=== PATIENT | female | born 2000 | race Hispanic/Latino ===

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

== ENCOUNTER 2022-05-02 11:42 | Emergency (ER) | payer OTHER ==
[~2022-05-02] VITALS: Ht 149.9 cm; Wt 68.0 kg
[2022-05-02 11:47] VITALS: BP 118/44
[2022-05-02 12:14] LABS: INFLUENZA TYPE A NEGATIVE FOR TYPE A (NEG)
[2022-05-02 12:15] LABS: INFLUENZA TYPE B NEGATIVE FOR TYPE B (NEG)
[2022-05-02] MEDS ORDERED: ALBU6.7H14 IH (13:48)
[2022-05-02] MEDS ORDERED: OSEL75 PO (13:48)
[2022-05-02] MEDS ORDERED: IBUP-1556 PO (13:48)
[2022-05-02] MEDS ORDERED: D-ME1POW16 PO (13:48)
[2022-05-02] MEDS ORDERED: OSELTAMIVIR PHOSPHATE 75 MG CAP PO SCH (14:00)
[2022-05-02] MEDS ORDERED: GUAIFENESIN-CODEINE 5 ML SYRUP PO ONE (14:00)
[2022-05-02] MEDS ORDERED: ACETAMINOPHEN 500 MG TABLET PO ONE (14:00)
[2022-05-02] MEDS ORDERED: IBUPROFEN 800 MG TAB PO ONE (14:00)
== END 2022-05-02 14:17 | disposition home or self-care (01) ==
LOC: EDH 11:42
DX: J06.9 Acute upper respiratory infection, unspecified (principal); Z20.828 Contact with and (suspected) exposure to other viral communicable diseases; Z20.822 Contact with and (suspected) exposure to COVID-19; E66.9 Obesity, unspecified; Z88.0 Allergy status to penicillin; Z79.1 Long term (current) use of non-steroidal anti-inflammatories (NSAID); Z68.30 Body mass index [BMI] 30.0-30.9, adult
CPT/HCPCS: 99284; 87635; 87804 ×2; C9803

== ENCOUNTER 2024-12-13 06:45 | Emergency (ER) | payer SELFPAY ==
[~2024-12-13] VITALS: Ht 149.9 cm; Wt 65.8 kg
[~2024-12-13 06:45] MED LIST: ALBU6.7H14 IH; D-ME1POW16 PO; IBUP-1556 PO; MAG-55 PO; OMEP20CA12 PO; OSEL75 PO
--- NOTE | 2024-12-13 07:11 | ERN ---
General Chief Complaint: Multiple Complaints Stated Complaint: CHEST PAIN, ABD PAIN, RT BREAST PAIN Time Seen by MD: 07:00 Source: patient, family History of Present Illness Initial Comments Patient is a 24-year-old female coming in to be evaluated for epigastric and chest pressure. Patient states that for in the morning she woke up with this pressure. She states that she was evaluated before for the same thing and was diagnosed with GERD. She received GI cocktail and states he felt much better back then this time she states she felt worse and the fact that the pressure was also presses on her chest that the reason she was more concerned. Allergies: Coded Allergies: Penicillins (Unverified Allergy, Unknown, 05/02/22) Home Meds Active Scripts Mag Hydrox/Al Hydrox/Simeth (Maalox Maximum Strength Susp) 355 Ml Oral.susp, 10 ML PO QID for abdominal pain, #355 ML Prov:ELICIA NUÑEZ MD 05/30/22 Omeprazole (Omeprazole) 20 Mg Capsule.dr, 20 MG PO DAILY, #30 CAP Prov:ELICIA NUÑEZ MD 05/30/22 Oseltamivir Phosphate (Tamiflu) 75 Mg Cap, 75 MG PO BID for 5 Days, #10 CAP Prov:LUX LOPEZ 05/02/22 Albuterol Sulfate (Proventil Hfa) 6.7 Gm Hfa.aer.ad, 2 PUFF IH QID, #1 INHALER Prov:LUX LOPEZ 05/02/22 Ibuprofen (Ibu) 800 Mg Tablet, 800 MG PO TID, #45 TAB Prov:LUX LOPEZ 05/02/22 D-Methorphan/PE/Acetaminophen (Theraflu Ms Severe Cold Pckt) 1 Each Powd.pack, 1 EACH PO QID, #20 PACK Prov:LUX LOPEZ 05/02/22 Past Medical History Past Medical History: Other Medical History Other: Obese, ACID REFLUX Past Surgical History: None Family History Family History: Negative Social History Social History: Negative, Lives with family Female( History) History: Not Applicable LMP: Dec 01, 2024 ROS Dictation CONSTITUTIONAL: No chills, no fever, no weakness, no diaphoresis, no malaise. HEAD/FACE: No signs of trauma. EENT: No eye pain, no blurred vision, no tearing, no double vision, no ear pain, no ear discharge, no nose pain, no nasal congestion, no throat pain, no throat swelling, no mouth pain. RESPIRATORY: No cough, no orthopnea, no SOB, no stridor, no wheezing. CARDIOVASCULAR: No chest pain, no edema, no palpitations, no syncope. GASTROINTESTINAL/ABDOMINAL: abdominal pain, no constipation, no diarrhea, no nausea, no vomiting. GENITOURINARY: No abnormal discharge, no dysuria, no frequent urination, no hematuria. No complaints of pain in the genitals. MUSCULOSKELETAL: No back pain, no gout, no joint pain, no joint swelling, no muscle pain, no muscle stiffness, no neck pain. INTEGUMENTARY: No change in color, no change in hair/nails, no dryness, no lesion, no lumps, no rash. NEUROLOGICAL/PSYCH: No anxiety, not depressed, no emotional problem, no headache, no numbness, no pre-existing deficit, no history of seizures, no tremors, no weakness. HEMATOLOGIC/LYMPHATIC: Not anemic, no history of blood clots, no apparent bleeding, no bruising, glands not swollen. All Systems Negative, Except as Noted. Physical Exam Physical Exam Dictation VITAL SIGNS: Reviewed. GENERAL APPEARANCE: Alert, oriented x3, no acute distress, obese. HEAD AND FACE: Non-traumatic. EYES: PERRL, pink conjunctivas, eyelid no trauma, anterior chamber clear. EARS: Pinnas intact and no signs of trauma or erythema. Ear canals clear and no discharge. TMs no erythema. NOSE: No discharge, no bleeding. OROPHARYNX: Mouth normal, teeth no caries, tongue pink. Pharynx clear, no erythema. Tonsils no exudates, no abscesses noted. Mucous membrane moist. NECK: Supple, non-tender, no thyromegaly, no masses, no JVD, no bruits. BREAST: Deferred. CHEST: No tenderness, no crepitus, no paradoxical movement, no retractions. LUNGS: Clear, well-ventilated, symmetric, no rales, no wheezing, no rhonchi, no stridor, good breath sounds bilaterally. HEART: Regular rate, regular rhythm, no murmur, no gallops. VASCULAR: No peripheral edema. ABDOMEN: Soft, positive bowel sounds, nondistended, no guarding, nontender, no rebound, no masses no hepatomegaly, no splenomegaly, no Mata's sign, no hernias. RECTAL: Deferred. GENITAL: Deferred. NEUROLOGICAL: Normal speech, gross motor function intact, gross sensory function intact. MUSCULOSKELETAL: Neck nontender, full range of motion, back nontender, full range of motion. EXTREMITIES: Nontender, full range of motion. SKIN: Color pink, dry, no turgor, no rash, no lacerations, no abrasions, no contusions. LYMPHATICS: Deferred. Results Laboratory and Microbiology Lab and Micro Result Laboratory Tests Test 12/13/24 06:58 White Blood Count 8.8 K/uL (4.8-10.8) Red Blood Count 4.92 MIL/uL (4.00-5.50) Hemoglobin 14.3 g/dL (12.0-16.0) Hematocrit 42.7 % (36-48) Mean Corpuscular Volume 86.8 fL (79-99) Mean Corpuscular Hemoglobin 29.1 pg (27.0-33.0) Mean Corpuscular Hemoglobin Concent 33.5 g/dL (32.0-36.0) Red Cell Distribution Width 12.6 % (11.0-15.5) Platelet Count 304 K/uL (130-400) Mean Platelet Volume 9.9 fL (7.5-10.5) Immature Granulocyte % (Auto) 0.3 % (0-1) Neutrophils (%) (Auto) 59.4 % (40.0-77.0) Lymphocytes (%) (Auto) 33.5 % (21.0-51.0) Monocytes (%) (Auto) 5.8 % (3.0-13.0) Eosinophils (%) (Auto) 0.7 % (0.0-8.0) Basophils (%) (Auto) 0.3 % (0.0-5.0) Neutrophils # (Auto) 5.2 K/uL (1.8-7.7) Lymphocytes # (Auto) 2.9 K/uL (1.0-4.8) Monocytes # (Auto) 0.5 K/uL (0.1-1.0) Eosinophils # (Auto) 0.06 K/uL (0.00-0.70) Basophils # (Auto) 0.03 K/uL (0.00-0.20) Absolute Immature Granulocyte (auto 0.03 K/uL (0-1) Nucleated Red Blood Cells 0.0 % (0.0-0.19) Sodium Level 138 mmol/L (136-145) Potassium Level 3.2 mmol/L (3.5-5.1) L Chloride Level 100 mmol/L (101-111) L Carbon Dioxide Level 30 mmol/L (21-32) Blood Urea Nitrogen 12 mg/dL (7-18) Creatinine 0.7 mg/dL (0.5-1.0) Glomerular Filtration Rate Calc 124 mL/min (>90) Random Glucose 112 mg/dL (70-105) H Total Calcium 9.5 mg/dL (8.5-10.1) Total Bilirubin 0.5 mg/dL (0.2-1.0) Aspartate Amino Transf (AST/SGOT) 16 U/L (10-37) Alanine Aminotransferase (ALT/SGPT) 28 U/L (12-78) Alkaline Phosphatase 96 U/L (50-136) Troponin I High Sensitivity 17 ng/L (4-50) Total Protein 7.8 g/dL (6.0-8.3) Albumin 3.9 g/dL (3.5-5.0) Lipase 24 U/L (16-77) Labs Reviewed?: Yes EKG/XRAY/US/CT/MRI EKG Comment [id number] time 7:03 a.m. Ventricular rate 58 Sinus rhythm [place] [address] wave elevation or depression X-RAY Comment IMAGING REPORT Signed PATIENT: DWAINE SANCHEZ MR#: [id number] : 2000 SEX: F AGE: 24 LOCATION: [facility] ORDER [id number] STATUS: REG REPORT#: [id number] SERVICE [id number] REASON: CHEST PAIN ORDERING PHYSICIAN: RAMON PERERA MD PROCEDURE: CXR1VW - CHEST 1VW CHEST 1VW HISTORY: Chest pain COMPARISON: None FINDINGS: A frontal projection of the chest was obtained. No acute pulmonary infiltrates is seen. The heart is normal in size. Prominent interstitial markings are seen. No evidence of aortic calcification is seen. IMPRESSION: 1. No acute pulmonary infiltrate is seen. DICTATED BY: VALDO ALMAZAN MD DATE: 12/13/24828 ELECTRONICALLY SIGNED BY: VALDO ALMAZAN MD DATE: 12/13/24831 [facility] MDM: Differential diagnosis: GERD, gastritis, NSTEMI, STEMI, cholecystitis, fibr ocystic changes breast Rationale: Tests considered and ordered secondary to shared decision making include: Previous outside records reviewed: Old ER visits. Risk of complication and/or morbidity or mortality of patient management: None Patient is a 24-year-old female coming in to be evaluated for epigastric discomfort and chest pressure. Long with the she has been having right breast discomfort. On physical exam chaperoned by nurse fibrocystic changes in the right breast. Laboratory workup mild dehydration patient was hydrated GI cocktail resolve pain. Patient will be discharged in stable condition with a diagnosis of GERD and fibrocystic changes of the right breast. ED Course Orders Procedure Category Date Status Time Vital Signs Per CPOE 12/13/24 Transmitted Routine 07:04 Saline Lock Iv CPOE 12/13/24 Transmitted 07:04 Cbc With Differential LAB 12/13/24 Complete 07:04 Comprehensive LAB 12/13/24 Complete Metabolic Panel 07:04 Lipase LAB 12/13/24 Complete 07:04 Urinalysis Profile LAB 12/13/24 Logged 07:04 12 Lead Ekg Tracing- EKG 12/13/24 Logged Technical 07:04 Troponin I High LAB 12/13/24 Complete Sensitivity 07:04 Chest 1vw RAD 12/13/24 Resulted 07:04 Ondansetron 4mg Inj PHA 12/13/24 Complete (Zofran 4mg Inj) 07:30 Lidocaine Hcl 2% PHA 12/13/24 Complete Viscous (Lidocaine Hcl 07:30 Mag/Alum/Simeth 30ml PHA 12/13/24 Complete (Maalox Plus 30ml) 07:30 Pantoprazole 40mg Inj PHA 12/13/24 Complete (Protonix 40mg Inj 07:30 0.9%Nacl 1000ml (Ns PHA 12/13/24 Complete 1000ml) 09:00 Potassium Bicarb/Cit PHA 12/13/24 Complete Ac 25meq (K-Lyte Ta 09:00 Current Medications Medications (Trade) Dose Ordered Sig/Luan Route PRN Reason Start Time Stop Time Status Last Admin Dose Admin Al Hydroxide/Mg Hydroxide (MAALox PLUS 30ML) 30 ml ONCE ONCE PO 12/13/24 07:30 12/13/24 07:31 DC Lidocaine HCl (Lidocaine HCl 2% Viscous) 10 ml ONCE ONCE PO 12/13/24 07:30 12/13/24 07:31 DC Ondansetron HCl (zoFRAN 4MG INJ) 4 mg ONCE ONCE IVP 12/13/24 07:30 12/13/24 07:31 DC Pantoprazole Sodium (PROTonix 40MG INJ) 40 mg ONCE ONCE IVP 12/13/24 07:30 12/13/24 07:31 DC Potassium Bicarbonate (K-Lyte Tablet Eff 25 Meq Tablet.eff) 25 meq ONCE ONCE PO 12/13/24 09:00 12/13/24 09:01 DC Sodium Chloride 1,000 ml @ 0 mls/hr ONCE ONCE IV 12/13/24 09:00 12/13/24 09:01 DC Vital Signs Date Time Temp Pulse Resp B/P (MAP) Pulse Ox O2 Delivery O2 Flow Rate FiO2 12/13/24 07:05 98.4 57 17 132/66 99 Room Air* 0 21 12/13/24 06:46 97.0 60 18 146/80 100 Room Air DX & DISP Disposition: Discharge Departure Impression: Primary Impression: Chest pain due to GERD Additional Impression: Fibrocystic changes of right breast Condition: Stable Scripts Naproxen (Naproxen) 375 Mg Tablet 1 TAB PO BID for pain for 7 Days, #14 TAB 0 Refills with food Prov: JESSY MILLER MD 12/13/24 Pantoprazole Sodium (Protonix) 40 Mg Ectab 1 TAB PO DAILY for 30 Days, #30 TAB 0 Refills Prov: JESSY MILLER MD 12/13/24 Additional Instructions: You have been reviewed in the emergency department at [facility] after presenting with chest pain. After considering your history, your risk factors, your EKG and your blood test troponins, have been found to be at very low risk less than (1 in 100) of having a major adverse cardiac event (like heart attack) in the near future. In the " low risk" group, the risks of doing further tests and treatment as the inpatient outweighs the benefits. In many patients in the low risk group for the test of any sort or unnecessary, however he should discuss this further with his general practitioner who will understand the medical and personal backgrounds better. Because we have never declared you" no risk" we would suggest. 1 returning for medical review if you have further episodes of chest pain/arm pain or other concerning symptoms like dizziness, collapse, palpitations or shor tness of breath. 2. Following up with your local doctor who will consider the need for further testing and will also ensure that any modifiable risk factors you may have for heart disease are optimally managed. Patient will be discharged in stable condition at the moment discharge patient states , no chest pain Referrals: SELF,REFERRAL (PCP) TANJA ROBERTS MD Time of Disposition: 09:33 JESSY MILLER MD Dec 13, 2024 07:11
[2024-12-13 07:12] LABS: BASOPHILS # (AUTO) 0.03 K/uL (0.00-0.20); BASOPHILS % (AUTO) 0.3 % (0.0-5.0); EOSINOPHILS # (AUTO) 0.06 K/uL (0.00-0.70); EOSINOPHILS % (AUTO) 0.7 % (0.0-8.0); HEMATOCRIT 42.7 % (36-48); IMMATURE GRANULOCYTE ABSOLUTE 0.03 K/uL (0-1); LYMPHOCYTES # (AUTO) 2.9 K/uL (1.0-4.8); LYMPHOCYTES % (AUTO) 33.5 % (21.0-51.0); MEAN CORPUSCULAR HEMOGLOBIN 29.1 pg (27.0-33.0); MEAN CORPUSCULAR HGB CONC 33.5 g/dL (32.0-36.0); MEAN CORPUSCULAR VOLUME 86.8 fL (79-99); MONOCYTES # (AUTO) 0.5 K/uL (0.1-1.0); MONOCYTES % (AUTO) 5.8 % (3.0-13.0); NEUTROPHILS # (AUTO) 5.2 K/uL (1.8-7.7); NEUTROPHILS % (AUTO) 59.4 % (40.0-77.0); PLATELET COUNT (AUTO) 304 K/uL (130-400); RED BLOOD CELL COUNT(AUTO) 4.92 MIL/uL (4.00-5.50); RED CELL DISTRIBUTION WIDTH 12.6 % (11.0-15.5); WHITE BLOOD COUNT (AUTO) 8.8 K/uL (4.8-10.8)
[2024-12-13 07:28] LABS: ALBUMIN 3.9 g/dL (3.5-5.0); BILIRUBIN,TOTAL 0.5 mg/dL (0.2-1.0); CREATININE 0.7 mg/dL (0.5-1.0); POTASSIUM 3.2 mmol/L (3.5-5.1); TOTAL PROTEIN, SERUM 7.8 g/dL (6.0-8.3)
--- NOTE | 2024-12-13 08:32 | HMCIMG ---
CHEST 1VW HISTORY: Chest pain COMPARISON: None FINDINGS: A frontal projection of the chest was obtained. No acute pulmonary infiltrates is seen. The heart is normal in size. Prominent interstitial markings are seen. No evidence of aortic calcification is seen. IMPRESSION: 1. No acute pulmonary infiltrate is seen.
[2024-12-13] MEDS ORDERED: NAPR-1192 PO (09:34)
[2024-12-13] MEDS ORDERED: PANT40TA55 PO (09:34)
--- NOTE | 2024-12-13 09:39 | NUR ---
PT ASKED ON MULTIPLE OCCASIONS BUT STATES SHE IS STILL UNABLE TO PROVIDE A SAMPLE.
[2024-12-13] MEDS: PoTASSium BIcarbonate/CIT AC 25 MEQ TABLET.EFF PO ONE (09:58)
[2024-12-13] MEDS: 0.9%NACL 1000ML 1,000 ML IV ONE (09:58)
[2024-12-13] MEDS: MAG/ALUM/SIMETH 30 ML UDCUP PO ONE (09:59)
[2024-12-13] MEDS: PANTOPrazole 40 MG/VIAL IVP ONE (09:59)
[2024-12-13] MEDS: LIDOCAINE HCL 2% VISCOUS 15 ML UDCUP PO ONE (09:59)
[2024-12-13] MEDS: ondanSETRON 4MG INJ IVP ONE (10:01)
[2024-12-13 10:29] LABS: APPEARANCE,URINE CLEAR (CLEAR); BILIRUBIN,URINE NEGATIVE (NEGATIVE); COLOR,URINE COLORLESS (YELLOW); GLUCOSE, URINE (UA) NEGATIVE (NEGATIVE); KETONES,URINE NEGATIVE (NEGATIVE); LEUKOCYTE ESTERASE ,URINE NEGATIVE Leu/uL (NEGATIVE); NITRATE,URINE NEGATIVE (NEGATIVE); OCCULT BLOOD,URINE NEGATIVE (NEGATIVE); PROTEIN,URINE NEGATIVE (NEGATIVE); UROBILINOGEN,URINE 0.2 mg/dL (0.2-1.0)
[2024-12-13 10:35] LABS: ADD UA MICROSCOPIC NO
--- NOTE | 2024-12-13 13:50 | EKG ---
[facility] Test Date: 2024-12-13 Test Time: 07:03:32 Pat Name: DWAINE SANCHEZ Department: [facility] Room: Gender: F Administrative Intern: [id number] : 2000 Requested By: RAMON PERERA Order Number: [id number] Reading MD: Colby Markham Measurements Intervals [place] Rate: 58 P: -24 VT: 134 QRS: 49 QRSD: 83 T: 26 QT: 403 QTc: 395 Interpretive Statements Sinus rhythm No previous ECG available for comparison Electronically Signed On 12-13-2024 14:45:02 CDT by Colby Markham Please click the below link to view image of tracing.
[2024-12-13 14:44] VITALS: BP 109/64; PULSE 70; RESP 16; TEMP 97.5; O2SAT 99
== END 2024-12-13 14:45 | disposition home or self-care (01) ==
LOC: EDH 06:45
DX: R07.89 Other chest pain (principal); N60.11 Diffuse cystic mastopathy of right breast; E66.9 Obesity, unspecified; K21.9 Gastro-esophageal reflux disease without esophagitis; Z79.1 Long term (current) use of non-steroidal anti-inflammatories (NSAID); Z79.899 Other long term (current) drug therapy; Z88.0 Allergy status to penicillin
CPT/HCPCS: 99285; 96374; 71045; 96375; 84484; 80053; 83690; 85025; 81003; 36415; 93005; J7030; J2405; J2470

== ENCOUNTER 2025-01-23 07:16 | Emergency (ER) | payer SELFPAY ==
[~2025-01-23] VITALS: Ht 149.9 cm; Wt 62.1 kg
[~2025-01-23 07:16] MED LIST changes: +NAPR-1192 PO; +PANT40TA55 PO
--- NOTE | 2025-01-23 07:33 | ERN ---
General Chief Complaint: Chest Pain Stated Complaint: CHEST PAIN Time Seen by MD: 07:17 Source: patient History of Present Illness Initial Comments Patient is a 24-year-old female coming in complaining of epigastric and mid chest discomfort. Per patient she does has a history of GERD and usually presents with this. But last this morning at 3:30 a.m. the discomfort was so intense that it got her to become nauseous and vomit. She also believes she felt chills. Allergies: Coded Allergies: Penicillins (Unverified Allergy, Unknown, 05/02/22) Home Meds Active Scripts Naproxen (Naproxen) 375 Mg Tablet, 1 TAB PO BID for pain for 7 Days, #14 TAB 0 Refills with food Prov:JESSY MILLER MD 12/13/24 Pantoprazole Sodium (Protonix) 40 Mg Ectab, 1 TAB PO DAILY for 30 Days, #30 TAB 0 Refills Prov:JESSY MILLER MD 12/13/24 Mag Hydrox/Al Hydrox/Simeth (Maalox Maximum Strength Susp) 355 Ml Oral.susp, 10 ML PO QID for abdominal pain, #355 ML Prov:ELICIA NUÑEZ MD 05/30/22 Omeprazole (Omeprazole) 20 Mg Capsule.dr, 20 MG PO DAILY, #30 CAP Prov:ELICIA NUÑEZ MD 05/30/22 Oseltamivir Phosphate (Tamiflu) 75 Mg Cap, 75 MG PO BID for 5 Days, #10 CAP Prov:LUX LOPEZ 05/02/22 Albuterol Sulfate (Proventil Hfa) 6.7 Gm Hfa.aer.ad, 2 PUFF IH QID, #1 INHALER Prov:LUX LOPEZ 05/02/22 Ibuprofen (Ibu) 800 Mg Tablet, 800 MG PO TID, #45 TAB Prov:LUX LOPEZ 05/02/22 D-Methorphan/PE/Acetaminophen (Theraflu Ms Severe Cold Pckt) 1 Each Powd.pack, 1 EACH PO QID, #20 PACK Prov:LUX LOPEZ 05/02/22 Past Medical History Past Medical History: No Pertinent History Medical History Other: denies pmhx Past Surgical History: None Family History Family History: Negative Social History Social History: Negative, Lives with family Female( History) History: Not Applicable LMP: Jan 22, 2025 ROS Dictation CONSTITUTIONAL: No chills, no fever, no weakness, no diaphoresis, no malaise. HEAD/FACE: No signs of trauma. EENT: No eye pain, no blurred vision, no tearing, no double vision, no ear pain, no ear discharge, no nose pain, no nasal congestion, no throat pain, no throat swelling, no mouth pain. RESPIRATORY: No cough, no orthopnea, no SOB, no stridor, no wheezing. CARDIOVASCULAR: chest pain, no edema, no palpitations, no syncope. GASTROINTESTINAL/ABDOMINAL: abdominal pain, no constipation, no diarrhea, no nausea, no vomiting. GENITOURINARY: No abnormal discharge, no dysuria, no frequent urination, no hematuria. No complaints of pain in the genitals. MUSCULOSKELETAL: No back pain, no gout, no joint pain, no joint swelling, no muscle pain, no muscle stiffness, no neck pain. INTEGUMENTARY: No change in color, no change in hair/nails, no dryness, no lesion, no lumps, no rash. NEUROLOGICAL/PSYCH: No anxiety, not depressed, no emotional problem, no headache, no numbness, no pre-existing deficit, no history of seizures, no tremors, no weakness. HEMATOLOGIC/LYMPHATIC: Not anemic, no history of blood clots, no apparent bleeding, no bruising, glands not swollen. All Systems Negative, Except as Noted. Physical Exam Physical Exam Dictation VITAL SIGNS: Reviewed. GENERAL APPEARANCE: Alert, oriented x3, no acute distress, obese. HEAD AND FACE: Non-traumatic. EYES: PERRL, pink conjunctivas, eyelid no trauma, anterior chamber clear. EARS: Pinnas intact and no signs of trauma or erythema. Ear canals clear and no discharge. TMs no erythema. NOSE: No discharge, no bleeding. OROPHARYNX: Mouth normal, teeth no caries, tongue pink. Pharynx clear, no erythema. Tonsils no exudates, no abscesses noted. Mucous membrane moist. NECK: Supple, non-tender, no thyromegaly, no masses, no JVD, no bruits. BREAST: Deferred. CHEST: No tenderness, no crepitus, no paradoxical movement, no retractions. LUNGS: Clear, well-ventilated, symmetric, no rales, no wheezing, no rhonchi, no stridor, good breath sounds bilaterally. HEART: Regular rate, regular rhythm, no murmur, no gallops. VASCULAR: No peripheral edema. ABDOMEN: Soft, positive bowel sounds, nondistended, no guarding, tender, no rebound, no masses no hepatomegaly, no splenomegaly, no Mata's sign, no hernias. RECTAL: Deferred. GENITAL: Deferred. NEUROLOGICAL: Normal speech, gross motor function intact, gross sensory function intact. MUSCULOSKELETAL: Neck nontender, full range of motion, back nontender, full range of motion. EXTREMITIES: Nontender, full range of motion. SKIN: Color pink, dry, no turgor, no rash, no lacerations, no abrasions, no contusions. LYMPHATICS: Deferred. Results Laboratory and Microbiology Lab and Micro Result Laboratory Tests Test 01/23/25 07:55 01/23/25 08:55 White Blood Count 10.9 K/uL (4.8-10.8) H Red Blood Count 4.31 MIL/uL (4.00-5.50) Hemoglobin 12.5 g/dL (12.0-16.0) Hematocrit 36.7 % (36-48) Mean Corpuscular Volume 85.2 fL (79-99) Mean Corpuscular Hemoglobin 29.0 pg (27.0-33.0) Mean Corpuscular Hemoglobin Concent 34.1 g/dL (32.0-36.0) Red Cell Distribution Width 12.2 % (11.0-15.5) Platelet Count 284 K/uL (130-400) Mean Platelet Volume 10.0 fL (7.5-10.5) Immature Granulocyte % (Auto) 0.4 % (0-1) Neutrophils (%) (Auto) 79.5 % (40.0-77.0) H Lymphocytes (%) (Auto) 14.4 % (21.0-51.0) L Monocytes (%) (Auto) 4.8 % (3.0-13.0) Eosinophils (%) (Auto) 0.5 % (0.0-8.0) Basophils (%) (Auto) 0.4 % (0.0-5.0) Neutrophils # (Auto) 8.7 K/uL (1.8-7.7) H Lymphocytes # (Auto) 1.6 K/uL (1.0-4.8) Monocytes # (Auto) 0.5 K/uL (0.1-1.0) Eosinophils # (Auto) 0.05 K/uL (0.00-0.70) Basophils # (Auto) 0.04 K/uL (0.00-0.20) Absolute Immature Granulocyte (auto 0.04 K/uL (0-1) Nucleated Red Blood Cells 0.0 % (0.0-0.19) Sodium Level 141 mmol/L (136-145) Potassium Level 3.3 mmol/L (3.5-5.1) L Chloride Level 105 mmol/L (101-111) Carbon Dioxide Level 28 mmol/L (21-32) Blood Urea Nitrogen 13 mg/dL (7-18) Creatinine 0.6 mg/dL (0.5-1.0) Glomerular Filtration Rate Calc 128 mL/min (>90) Random Glucose 124 mg/dL (70-105) H Total Calcium 8.9 mg/dL (8.5-10.1) Total Bilirubin 0.4 mg/dL (0.2-1.0) Aspartate Amino Transf (AST/SGOT) 16 U/L (10-37) Alanine Aminotransferase (ALT/SGPT) 22 U/L (12-78) Alkaline Phosphatase 74 U/L (50-136) Troponin I High Sensitivity 25 ng/L (4-50) Total Protein 7.3 g/dL (6.0-8.3) Albumin 3.7 g/dL (3.5-5.0) Lipase 27 U/L (16-77) Urine Color RED (YELLOW) H Urine Appearance CLOUDY (CLEAR) H Urine pH 8.5 (5.0-8.0) H Urine Specific [place] 1.020 (1.001-1.031) Urine Protein 100 mg/dL (NEGATIVE) H Urine Glucose (UA) NEGATIVE mg/dL (NEGATIVE) Urine Ketones NEGATIVE mg/dL (NEGATIVE) Urine Occult Blood LARGE (NEGATIVE) H Urine Nitrate POSITIVE (NEGATIVE) H Urine Bilirubin SMALL mg/dL (NEGATIVE) H Urine Urobilinogen 0.2 mg/dL (0.2-1.0) Urine Leukocyte Esterase TRACE [place]/uL (NEGATIVE) H Urine RBC TNTC /HPF (0-1) H Urine WBC 2-5 /HPF (0-1) H Urine Squamous Epithelial Cells None Seen /HPF (0-2) Urine Bacteria Rare /HPF (None Seen) Urine HCG, Qualitative NEGATIVE (NEGATIVE) Urine Opiates Screen NEGATIVE (NEGATIVE) Urine Barbiturates Screen NEGATIVE (NEGATIVE) Urine Phencyclidine Screen NEGATIVE (NEGATIVE) Urine Amphetamines Screen NEGATIVE (NEGATIVE) Urine Benzodiazepines Screen NEGATIVE (NEGATIVE) Urine Cocaine Screen NEGATIVE (NEGATIVE) Urine Marijuana (THC) Screen NEGATIVE (NEGATIVE) Labs Reviewed?: Yes EKG/XRAY/US/CT/MRI EKG Comment 01/23/2025 time 7:12 a.m. Ventricular rate 52 Sinus rhythm [place] [address] wave elevation or depression MDM MDM: Differential diagnosis: Gastritis, UTI, dehydration Rationale: Tests considered and ordered secondary to shared decision making include: Previous outside records reviewed: Old ER visits. Risk of complication and/or morbidity or mortality of patient management: None Medications-Per medication reconciliation Need for hospitalization: Patient does not meet criteria for hospitalization. Patient is a 24-year-old female coming in complaining of abdominal discomfort. Laboratory workup positive. Urinary tract infection. Patient was hydrated with IV fluids given IV antibiotics he will be discharged in stable condition with a diagnosis of UTI. I did advised her appropriate follow up with PCP in one days for ongoing evaluation and management. ED Course Orders Procedure Category Date Status Time Cbc With Differential LAB 01/23/25 Complete 07:18 Comprehensive LAB 01/23/25 Complete Metabolic Panel 07:18 Troponin I High LAB 01/23/25 Complete Sensitivity 07:18 ,Urine Test LAB 01/23/25 Complete 07:18 Urinalysis Profile LAB 01/23/25 Complete 07:18 0.9%Nacl 1000ml (Ns PHA 01/23/25 Complete 1000ml) 07:30 Pantoprazole 40mg Inj PHA 01/23/25 Complete (Protonix 40mg Inj 07:30 Lipase LAB 01/23/25 Complete 07:18 Drug Screen Urine LAB 01/23/25 Complete 07:18 Ondansetron 4mg Inj PHA 01/23/25 Complete (Zofran 4mg Inj) 08:00 Lidocaine Hcl 2% PHA 01/23/25 Complete Viscous (Lidocaine Hcl 08:00 Mag/Alum/Simeth 30ml PHA 01/23/25 Complete (Maalox Plus 30ml) 08:00 Potassium Bicarb/Cit PHA 01/23/25 In Process Ac 25meq (K-Lyte Ta 09:30 Culture Urine RAMÍREZ 01/23/25 Logged 09:16 Current Medications Medications (Trade) Dose Ordered Sig/Luan Route PRN Reason Start Time Stop Time Status Last Admin Dose Admin Al Hydroxide/Mg Hydroxide (MAALox PLUS 30ML) 30 ml ONCE ONCE PO 01/23/25 08:00 01/23/25 08:01 DC 01/23/25 07:59 Lidocaine HCl (Lidocaine HCl 2% Viscous) 10 ml ONCE ONCE PO 01/23/25 08:00 01/23/25 08:01 DC 01/23/25 07:58 Ondansetron HCl (zoFRAN 4MG INJ) 4 mg ONCE ONCE IVP 01/23/25 08:00 01/23/25 08:01 DC 01/23/25 07:59 Pantoprazole Sodium (PROTonix 40MG INJ) 40 mg ONCE ONCE IVP 01/23/25 07:30 01/23/25 07:31 DC 01/23/25 07:59 Potassium Bicarbonate (K-Lyte Tablet Eff 25 Meq Tablet.eff) 25 meq ONCE ONCE PO 01/23/25 09:30 01/23/25 09:31 01/23/25 09:19 Sodium Chloride 1,000 ml @ 0 mls/hr ONCE ONCE IV 01/23/25 07:30 01/23/25 07:31 DC 01/23/25 07:59 Vital Signs Date Time Temp Pulse Resp B/P (MAP) Pulse Ox O2 Delivery O2 Flow Rate FiO2 01/23/25 09:10 97.5 53 16 102/57 97 Room Air* 0 21 01/23/25 08:06 97.7 53 14 105/62 98 Room Air* 0 21 01/23/25 07:18 97.0 50 18 133/71 100 Room Air 0 DX & DISP Disposition: Discharge Departure Impression: Primary Impression: GERD (gastroesophageal reflux disease) Additional Impression: UTI (urinary tract infection) Condition: Stable Scripts Pantoprazole Sodium (Protonix) 40 Mg Ectab 1 TAB PO DAILY for 30 Days, #30 TAB 0 Refills Prov: JSESY MILLER MD 01/23/25 Ciprofloxacin HCl (Cipro) 250 Mg Tablet 1 TAB PO BID for 7 Days, #14 TAB 0 Refills Prov: JESSY MILLER MD 01/23/25 Additional Instructions: FOLLOW-UP WITH PRIMARY CARE PROVIDER IN 1 TO 2 DAYS. TAKE MEDICATIONS DIRECTED HERE IN THE EMERGENCY ROOM. OKAY TO CONTINUE HOME MEDICATIONS UNLESS OTHERWISE DISCUSSED DURING YOUR VISIT IN THE EMERGENCY ROOM TODAY. RETURN TO YOUR NEAREST EMERGENCY ROOM IF SYMPTOMS WORSEN OR IF THERE IS NO IMPROVEMENT. CALL 911 IF YOU NEED IMMEDIATE ASSISTANCE. TAKE TYLENOL [id number] NEEDED AND IF NO CONTRAINDICATIONS ARE PRESENT. INCREASE ORAL HYDRATION. A WOUND CULTURE OR URINE CULTURE WAS ORDERED HERE IN THE EMERGENCY ROOM DEPARTMENT PLEASE FOLLOW-UP WITH PRIMARY CARE PROVIDER AND ADVISE THEM TO GET REPORTS FROM OUR FACILITY. IF YOU HAD ANY TERRY WRAP/SPLINTS THAT WERE APPLIED HERE, PLEASE DO NOT REMOVE THEM UNTIL YOU SEE YOUR PRIMARY CARE OR SPECIALTY. Referrals: Referrals: SELF,REFERRAL (PCP) TANJA ROBERTS MD Time of Disposition: 09:32 JESSY MILLER MD Jan 23, 2025 07:33
[2025-01-23] MEDS: LIDOCAINE HCL 2% VISCOUS 15 ML UDCUP PO ONE (07:58)
[2025-01-23] MEDS: MAG/ALUM/SIMETH 30 ML UDCUP PO ONE (07:59)
[2025-01-23] MEDS: 0.9%NACL 1000ML 1,000 ML IV ONE (07:59)
[2025-01-23 08:01] LABS: IMMATURE GRANULOCYTE ABSOLUTE 0.04 K/uL (0-1); NUCLEATED RED BLOOD CELLS 0.0 % (0.0-0.19); PLATELET COUNT (AUTO) 284 K/uL (130-400); RED BLOOD CELL COUNT(AUTO) 4.31 MIL/uL (4.00-5.50); RED CELL DISTRIBUTION WIDTH 12.2 % (11.0-15.5); WHITE BLOOD COUNT (AUTO) 10.9 K/uL (4.8-10.8)
[2025-01-23 08:45] LABS: ASPARTATE AMINOTRANSFERASE 16.0 U/L (10-37); CREATININE 0.6 mg/dL (0.5-1.0); GLOMERULAR FILTR. RATE CALC 128.0 mL/min (>90); GLUCOSE,RANDOM 124.0 mg/dL (70-105); SODIUM SERUM 141.0 mmol/L (136-145); TOTAL PROTEIN, SERUM 7.3 g/dL (6.0-8.3)
[2025-01-23 08:59] LABS: UREA NITROGEN, BLOOD 13.0 mg/dL (7-18)
[2025-01-23 09:15] LABS: GLUCOSE, URINE (UA) NEGATIVE (NEGATIVE); LEUKOCYTE ESTERASE ,URINE TRACE Leu/uL (NEGATIVE); NITRATE,URINE POSITIVE (NEGATIVE); OCCULT BLOOD,URINE LARGE (NEGATIVE)
[2025-01-23 09:16] LABS: ADD UA MICROSCOPIC YES; APPEARANCE,URINE CLOUDY (CLEAR)
[2025-01-23 09:17] LABS: HCG,QUALITATIVE URINE NEGATIVE (NEGATIVE)
[2025-01-23 09:22] LABS: AMPHET/METH SCREEN,URINE NEGATIVE (NEGATIVE); BARBITURATE SCREEN, URINE NEGATIVE (NEGATIVE); CANNABINOID SCREEN,URINE NEGATIVE (NEGATIVE); COCAINE SCREEN,URINE NEGATIVE (NEGATIVE)
[2025-01-23 09:23] LABS: SQUAMOUS EPITHELIAL CELL,UR None Seen /HPF (0-2)
[2025-01-23] MEDS ORDERED: CIPR-279 PO (09:33)
--- NOTE | 2025-01-23 10:36 | NUR ---
DC PATIENT WAS DC'D DR MILLER TODAY I DC'D PATIENTS IV WITH CATH STILL INTACT AND APPLIED 2X2 GAUZE WITH COBAN I EXPLAINED TO PATIENT TO FOLLOW UP WITH PCP, PROVIDED INFO BASED ON DIAGNOSIS AND EXPLAINED NEW PRESCRIPTIONS AND HOW TO TAKE THEM, I ALSO ANSWERED ANY FOLLOW UP QUESTIONS THE PATIENT HAD, PATIENT AMBULATED OUT OF ED, NO COMPLICATIONS
[2025-01-23 10:38] VITALS: BP 104/61; PULSE 88; RESP 16; TEMP 97.8; O2SAT 100
--- NOTE | 2025-01-23 11:42 | EKG ---
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
== END 2025-01-23 10:35 | disposition home or self-care (01) ==
LOC: EDH 07:16
DX: K21.9 Gastro-esophageal reflux disease without esophagitis (principal); N39.0 Urinary tract infection, site not specified; Z79.1 Long term (current) use of non-steroidal anti-inflammatories (NSAID); Z79.899 Other long term (current) drug therapy; Z88.0 Allergy status to penicillin
CPT/HCPCS: 99284; 96374; 96361; 96375; 84484; 80053; 80305; 83690; 85025; 87086; 81025; 36415; 93005; 81001; J7030; J2405; J2470